=== PATIENT | male | born 1965 | race Caucasian/White ===

== ENCOUNTER → 2018-08-31 | Outpatient (CLI) | payer BC ==
--- NOTE | 2018-08-31 11:29 | XR ---
EXAMINATION TYPE: XR thoracic spine complete DATE OF EXAM: 08/31/2018 CLINICAL HISTORY: Pain for one month. TECHNIQUE: Frontal, lateral, and swimmer's view of thoracic spine are obtained. COMPARISON: None. FINDINGS: Thoracic spine show satisfactory alignment without evidence of acute fracture or dislocatio n. Vertebral body heights are preserved. Mild multilevel disc space narrowing is seen. Mild to moder ate multilevel anterior and lateral spurring is present. Visualized ribs are unremarkable bilaterally . IMPRESSION: As above.
== END ==
LOC: RADXRYALE 10:32
PROVIDERS: ATTEND Internal Medicine
DX: M54.6 Pain in thoracic spine (principal)
CPT/HCPCS: 72072